=== PATIENT | female | born 1990 | race Caucasian/White ===

== ENCOUNTER 2022-11-28 09:53 | Emergency (ER) | payer OTHER, MEDICAID, SELFPAY ==
[2022-11-28 09:58] VITALS: BP 121/61; PULSE 60; RESP 14; TEMP 36.5; O2SAT 99
--- NOTE | 2022-11-28 11:01 | ED.SKABFB ---
HPI - Skin/Abscess/Foreign Bdy General Chief complaint: Skin/Abscess/Foreign Body Stated complaint: cut finge LT index Time Seen by Provider: 11/28/22 10:58 Source: patient Mode of arrival: Ambulatory Limitations: no limitations History of Present Illness HPI narrative: Patient is a 32-year-old female here for evaluation of a cut to her left index finger. It occurred just prior to arrival. She was cutting a avocado when it happened. No other injuries. Covered with a bandage and came to the emergency department for evaluation. Related Data Allergies Allergy/AdvReac Type Severity Reaction Status Date / Time No Known Drug Allergies Allergy Verified 11/28/22 10:03 Review of Systems Constitutional Constitutional: Reports system reviewed and no additional complaints, except as documented Musculoskeletal Musculoskeletal: Reports system reviewed and no additional complaints, except as documented Integumentary/Breasts Skin/Breast: Reports system reviewed and no additional complaints, except as documented Neurologic Neurologic: Reports system reviewed and no additional complaints, except as documented Patient History Social History Smoking Status: Never smoker Smoking Status: Never smoker alcohol intake frequency: 0-2 drinks per day Substance Use Type: does not use Exam Initial Vital Signs Initial Vital Signs: Vital Signs Temperature 97.7 F 11/28/22 09:58 Pulse Rate 60 11/28/22 09:58 Respiratory Rate 14 11/28/22 09:58 Blood Pressure 121/61 11/28/22 09:58 Pulse Oximetry 99 11/28/22 09:58 Oxygen Delivery Method Room Air 11/28/22 09:58 Skin Other: 2 cm laceration on the radial aspect of the distal left index finger distal to the D IP joint. Neuro Sensory Exam: no sensory deficits noted Extrem Other: Full range of motion of the MCP PIP and the IP joint. Procedures Laceration Repair Laceration 1: Site: other (Index finger) Side (If applicable): left Size (cm): 2 Description: flap Depth: simple, single layer Pre-repair: wound explored, irrigated extensively and deep structures intact Skin layer closed with: nylon Skin layer suture size: 4-0 Number of sutures: 8 Technique: simple, interrupted Nerve Block Nerve Block 1: Time out performed: Yes Local Anesthetic: lidocaine 2% Amount of anesthesia used (mL): 3 Side: left Nerve Blocks: digital Procedure Successful: Yes Patient Tolerated Procedure: Well Course Orders Ordered: Discontinued Medications Bacitracin (Bacitracin Oint 0.9 Gm Pckt) 1 applic TOP NOW ONE Stop: 11/28/22 12:04 Lidocaine HCl (Lidocaine 2% Inj Sdv 5ml) 5 ml INJ INTRA-OP ONE Stop: 11/28/22 11:02 Last Admin: 11/28/22 11:24 Dose: 5 ml Documented By: [facility] Vital Signs Vital signs: Vital Signs - 8 hr 11/28/22 09:58 Temperature 97.7 F Pulse Rate 60 Respiratory Rate 14 Blood Pressure 121/61 Pulse Oximetry 99 Oxygen Delivery Method Room Air MDM - Skin/Abscess/Foreign Bdy MDM Narrative Medical decision making narrative: The wound is superficial and should heal very well on its own. There are no deep structure involvement. No nail involvement. Low suspicion for fracture so we will hold on any x-rays. No foreign body noted. The wound was closed as described above. They were given care instructions and return precautions. They expressed understanding and agreement Discharge Plan Departure Patient Disposition: Home Clinical Impression: Laceration Instructions: DI for Laceration Repair Activity Restrictions/Additional Instructions: I would leave the bandage that was placed today in place until tomorrow. After that you can take it off. At that point you can wash your hands like normal. You can shower like normal. You can put topical antibiotic ointment on the area. Examples of this would include bacitracin or Neosporin. You can purchase these in the drugstore [id number]. Cover with a regular Band-Aid as needed. The stitches do need removed in 10 days. This can be done either by your primary doctor or the walk-in clinic or you can return here to the emergency department. Referrals: Miscellaneous,[facility] [Primary Care Provider] - Stand Alone Forms: Patient Portal/API
[2022-11-28] MEDS: LIDOCAINE 2% INJ SDV 5ML 5 ML INJ (11:24)
[2022-11-28] MEDS: BACITRACIN OINT 0.9 GM PCKT 1 APPLIC TOP (12:13)
--- NOTE | 2022-11-28 12:16 | PC.NURSE ---
Laceration/flap from cutting an avacado.
== END 2022-11-28 12:17 | disposition home or self-care (01) ==
PROVIDERS: Emergency Provider Emergency Medicine
DX: S61.211A Laceration without foreign body of left index finger without damage to nail, initial encounter (principal); W26.0XXA Contact with knife, initial encounter
CPT/HCPCS: 12001; 99283